=== PATIENT | male | born 1985 | race Caucasian/White ===

== ENCOUNTER 2021-08-23 08:35 | Emergency (ER) | payer BC, SELFPAY ==
[2021-08-23 08:36] VITALS: BP 129/83; PULSE 89; RESP 16; TEMP 35.9; O2SAT 95; BMI 28.0
[2021-08-23 08:44] VITALS: BP 129/97; PULSE 82; RESP 14; TEMP 36.5; O2SAT 95; O2SAT 97
--- NOTE | 2021-08-23 09:07 | EDS_ITS ---
HPI History of Present Illness Chief Complaint: Chest Pain Informant: patient Onset/Context/Timing Onset: Weeks (1) Activity at onset: sudden Timing: Waxes and wanes Quality: Positive for Tightness (Squeezing) Location: Substernal Worsened By: Nothing Relieved By: Nothing Associated Symptoms: Positive for Dyspnea and Fever; Negative for Nausea, Vomiting, Diaphoresis, Cough, Lightheadedness, Acid Reflux and Palpitations Narrative Narrative: Patient presents with chest pain that has been constant for the past week. Patient states it has been waxing and waning. Patient describes as a tightness and squeezing. Patient states the pain is over the substernal area. Patient states nothing makes it better nothing makes it worse. Patient states that earlier this week his pain did radiate into his left scapular area. Patient currently denies any radiation of the pain. Patient admits to some subjective fevers. Patient admits to some palpitations where he felt like his heart was racing. Patient denies any nausea or vomiting. Patient denies any diaphoresis. Patient denies any cough. PFSH PFSH Medical History no medical history no medical history Home Medications NK 08/23/21 [History Last Taken Unknown] Allergy/AdvReac Type Severity Reaction Status Date / Time No Known Allergies Allergy Verified 08/23/21 08:41 Surgical History (Updated 08/23/21 @ 09:[address] Ej Nagel DO) History of back surgery Surgical History no surgical history Social History Smoking Status: Never smoker ROS ROS ED Constitutional Constitutional ED: Reports fever(s) and subjective; Denies chills Eyes Eyes: Denies blurry vision or change in vision ENT ENT ED: Denies rhinorrhea or sore throat Cardiovascular Cardiovascular: Reports chest pain, palpitations and racing heartbeat Respiratory/Chest Respiratory/Chest: Reports cough and dyspnea Gastrointestinal Gastrointestinal: Denies abdominal pain, nausea or vomiting Genitourinary Genitourinary ED: Denies dysuria or hematuria Musculoskeletal Musculoskeletal: Reports back pain; Denies neck pain Integumentary Denies abscess or rash Neurologic Neurologic: Reports headache(s); Denies weakness Allergic/Immunologic Allergic/Immunologic ED: Denies mouth swelling or urticaria EXAM Physical Exam Const Vital Signs: 08/23/21 08:36 08/23/21 08:44 08/23/21 09:25 Temperature 96.7 F L 97.7 F L Temperature Source Temporal Oral Pulse Rate 89 82 Respiratory Rate 16 14 Respiratory Effort Normal Non-Labored Blood Pressure 129/83 H 129/97 H Blood Pressure Mean 98 107 Pulse Ox 95 97 98 Oxygen Delivery Method Room Air Room Air Room Air Positive well nourished and well developed General Appearance ED: well developed HEENT normocephalic and atraumatic Eyes PERRL and EOMs intact bilaterally Neck supple and no JVD Chest Wall inspection of chest normal and palpation of chest normal Chest: Negative for tenderness Resp normal respiratory effort and clear to auscultation bilaterally Effort and Inspection: Negative for respiratory distress Cardio regular rate, regular rhythm and no murmurs GI normal to inspection, nondistended, normoactive bowel sounds, soft to palpation, non-tender and non-distended Extremity normal to inspection General Extremety ED: Negative for edema or tenderness General Extremity: Negative for edema Neuro oriented x3, CN's II-XII intact bilaterally and no sensory deficits noted Sensorium / Orientation: awake and alert Motor Exam: strength 5/5 throughout Psych mental status grossly normal Heart Score History: Slightly/Non-Suspicious ECG: Normal Age: </= 45 years Risk Factors: 1 or 2 Risk Factors Troponin: </= Normal Limit Score: 1 MDM MDM MDM Narrative Medical decision making narrative: Patient was given aspirin here. EKG was obtained. On my interpretation, it showed a normal sinus rhythm with a rate of 78. FL interval, QRS interval, and QTc intervals were all normal. [place] was normal. There are no acute ST or T wave changes. Portable 1 view chest x-ray was obtained. On my interpretation, lung shields are clear. There is normal cardiac silhouette. Bony thorax is normal. There is no acute process noted. Radiologist also interpreted the x-ray and agrees. CBC and basic metabolic profile were within normal limits. Initial high-sensitivity troponin was 6. 2- hour repeat high-sensitivity troponin was 5. Patient is feeling better on reevaluation. Patient has a HEART score of 1. Patient was advised that this is low risk for acute cardiac event. Patient was instructed to follow-up with his primary care physician in 5 to 7 days. Patient understood and was agreeable with the plan. All questions were answered. Lab Data Attestation: I reviewed the patient's lab results. Labs: Laboratory Results - last 24 hr 08/23/21 08/23/21 08/23/21 08:47 08:47 11:05 WBC 5.2 RBC 5.14 Hgb 16.4 Hct 46.0 MCV 89.5 MCH 31.9 MCHC 35.7 RDW Std Deviation 40.0 RDW Coeff of Rickie 12.1 Plt Count 212 MPV 9.8 Immature Gran % (Auto) 0.600 Neut % (Auto) 57.9 Lymph % (Auto) 24.6 [place] % (Auto) 15.5 H Eos % (Auto) 1.0 Baso % (Auto) 0.4 Absolute Neuts (auto) 3.0 Absolute Lymphs (auto) 1.28 Nucleated RBC % 0 Sodium 138 Potassium 4.0 Chloride 107 Carbon Dioxide 25.0 Anion Gap 6 BUN 12 Creatinine 0.92 Estim Creat Clear Calc 111.00 Est GFR (MDRD) Af Amer 120 Est GFR (MDRD) Non-Af 99 BUN/Creatinine Ratio 13.1 Glucose 95 Calcium 8.9 Troponin I High Sens 6 5 Radiography Chest X-Ray - ED: 1 View, Read by ED Physician, Read by Radiologist and Normal Diagnostic Testing: Clinical Impression(s) from Imaging Studies Chest X-Ray 08/23/21 09:25 IMPRESSION: Normal x-ray examination of the chest. Electronically Signed: Mayru Baldwin MD at 9:54 EST Reading Location ID and State: [address] [place] [address] , Service support , EKG Initial EKG: Attestation: I personally reviewed and interpreted this EKG as follows: Interpretation: Sinus Rhythm (78) and No Acute Injury Pattern Discharge Plan Triage Chief Complaint: Chest Pain ED Provider: Ej Nagel Dx/Rx/DC Orders Clinical Impression: Chest pain Instructions: ED Chest Pain, Uncertain Cause Prescriptions: No Action NK RF: 0 Primary Care Provider: Care Physician,No Primary Referrals: Ej Irwin MD [STAFF PHYSICIAN] - 5-7 Days Care Physician,No Primary [Primary Care Provider] - Disposition Disposition: Home, Self Care
--- NOTE | 2021-08-23 09:09 | NURSING ---
NO OLD EKGS
--- NOTE | 2021-08-23 09:11 | EKG12_ITS ---
Test Reason : CP Blood Pressure : / mmHG Vent. Rate : 078 BPM Atrial Rate : 078 BPM P-R Int : 154 ms QRS Dur : 102 ms QT Int : 356 ms P-R-T Axes : 006 054 037 degrees QTc Int : 405 ms Normal sinus rhythm Normal ECG Confirmed by MARIA L MARKHAM, JOSUE ([id number]), news editor ISRAEL COLLIER ([id number]) on 08/27/2021 1:25:20 PM Referred By: Confirmed By:DAVIAN LISA MD
[2021-08-23 09:25] VITALS: O2SAT 98
--- NOTE | 2021-08-23 09:25 | RAD_ITS ---
STUDY: X-RAY CHEST REASON FOR EXAM: Male, 35 years old. Chest pain TECHNIQUE: Single AP portable view of the chest. COMPARISON: None. FINDINGS: EKG electrodes are seen. The lungs are clear and expanded. There is no demonstrated pleural abnormality. Normal size heart. Normal mediastinum and ricky. Normal visualized pulmonary arteries. Normal visualized aortic arch and descending thoracic aorta. Normal visualized thoracic spine. Normal visualized ribs, clavicles, and shoulders. There is no demonstrated abnormality of the visualized soft tissue structures of the upper abdomen. RAD/Chest 1 View (Portable) IMPRESSION: Normal x-ray examination of the chest. Electronically Signed: Mayur Baldwin MD at 9:54 EST ,
[2021-08-23 09:26] LABS: Absolute Lymphocyte Count 1.28 X10^3/uL (0.83-4.51); Basophil# 0.02 X10^3/uL; Basophil% 0.4 % (0-1); Eosinophil# 0.05 X10^3/uL; Hemoglobin 16.4 g/dL (13.0-16.5); Lymphocyte # 1.28 X10^3/ul (0.83-4.51); Lymphocyte % 24.6 % (19-41); Mean Corp Hgb Conc 35.7 g/dL (32-36); Mean Corpuscular Hgb 31.9 pg (27.0-32.0); Mean Corpuscular Volume 89.5 fL (80-94); Mean Platelet Vol. 9.8 fl (6.2-12.0); Monocyte# 0.81 X10^3/uL; Monocyte% 15.5 % (0-10); NRBC Flagged by Analyzer 0 % (0-5); Neutrophil # 3.02 X10^3/uL (2.7-7.7); Neutrophil % 57.9 % (47-70); Platelet Count 212 K/mm3 (150-450); RBC Distribution Width CV 12.1 % (11.6-14.6); Red Blood Count 5.14 M/mm3 (4.6-6.2); White Blood Count 5.2 K/mm3 (4.4-11.0)
[2021-08-23] MEDS: Aspirin 81 MG TAB.CHEW 324 MG PO (09:31)
[2021-08-23 09:34] LABS: Anion Gap 6 (5-15); BUN 12 mg/dL (7-18); BUN/Creat Ratio 13.1 RATIO (10-20); Calcium,Total 8.9 mg/dL (8.5-10.1); Chloride 107 mmol/L (98-107); Creatinine, Serum 0.92 mg/dL (0.70-1.30); EST Glomerular Filtration Rate 99 mL/min (>60); Est Glom Filt Rate - Afr Amer 120 mL/min (>60); Glucose 95 mg/dL (74-106); Sodium Level 138 mmol/L (136-145); Troponin-I HS 6 pg/mL (3.0-78.0)
[2021-08-23 11:40] LABS: Troponin-I HS 5 pg/mL (3.0-78.0)
[2021-08-23 12:10] VITALS: BP 118/81; PULSE 77; RESP 19; O2SAT 98
== END 2021-08-23 12:11 | disposition home or self-care (01) ==
PROVIDERS: Emergency Provider Emergency Medicine; Visit Provider Emergency Medicine
DX: R07.9 Chest pain, unspecified (principal); R50.9 Fever, unspecified; R06.00 Dyspnea, unspecified; R00.2 Palpitations; M54.9 Dorsalgia, unspecified
CPT/HCPCS: 71045; 80048; 84484; 85025; 93005; 99285; A4216